=== PATIENT | male | born 1980 | race Caucasian/White ===

== ENCOUNTER 2017-12-06 13:49 | Emergency (ER) | payer BC ==
[~2017-12-06] VITALS: Ht 193 cm; Wt 83.9 kg
[2017-12-06 14:00] VITALS: BP_SYST 124
[2017-12-06 16:20] VITALS: BP_SYST 120
== END 2017-12-06 16:20 | disposition home or self-care (01) ==
LOC: SED 13:49
DX: H00.036 Abscess of eyelid left eye, unspecified eyelid (principal); R21 Rash and other nonspecific skin eruption; R03.0 Elevated blood-pressure reading, without diagnosis of hypertension
CPT/HCPCS: 99283